=== PATIENT | female | born 1990 | race Caucasian/White ===

== ENCOUNTER 2022-03-21 05:59 | Outpatient (CLI) | payer OTHER ==
[~2022-03-21] VITALS: Ht 170.2 cm; Wt 90.5 kg
--- NOTE | 2022-03-21 06:10 | NUR ---
0610- Patient ambulatory to unit with spouse. Patient oriented to labor room 1 and assisted into a gown. Patient denies leaking of fluid, vaginal bleeding or contractions, and reports good movement. Patient reports a blood pressure of 160/110 this morning at home. Patient expresses desire to go home if her blood pressure is stable. Blood pressure assessmnet complete and 1+ pitting edema noted, but no other signs or symptoms of high BP assessed.
[2022-03-21] MEDS ORDERED: COLACE 100100 MG/CAP PO (06:30)
[2022-03-21] MEDS ORDERED: PRENATAL (06:30)
[2022-03-21] MEDS ORDERED: MIRALAX PA17 GM/Dose PO (06:31)
[2022-03-21] MEDS ORDERED: CLARITIN 1010 MG/TAB PO (06:32)
[2022-03-21] MEDS ORDERED: ZANTAC-360 (FAM10 MG PO (06:32)
[2022-03-21 07:00] VITALS: BP 128/87; PULSE 68; TEMP 98
[2022-03-21 07:43] LABS: COLLECTION METHOD CLEAN CATCH
[2022-03-21 07:48] LABS: BASO % 0.4 % (0.0-2.0); EOS # 0.1 K/mm3 (0.0-0.7); EOS % 0.7 % (0.0-4.0); GRAN # 6.2 K/mm3 (1.4-6.5); GRAN % 76.8 % (42.2-75.2); HEMATOCRIT 37.1 % (37.0-47.0); HEMOGLOBIN 13.1 g/dl (12.5-16.0); LYMPH % 12.9 % (20.0-51.0); MEAN CELL VOLUME 93 fl (80.0-100.0); MEAN CORPUSCULAR HEMOGLOBIN 33 pg (27-31); MEAN CORPUSCULAR HGB CONC 35 g/dl (33.0-37.0); MEAN PLATELET VOLUME 11.4 fl (7.4-10.4); MONO # 0.7 K/mm3 (0.1-0.6); MONO % 8.7 % (1.7-9.3); PLATELET COUNT 149 K/mm3 (130-400); RED BLOOD COUNT 4.01 M/mm3 (4.10-5.30); REDCELL DISTRIBUTION WIDTH-CV 12.4 % (11.5-14.5)
[2022-03-21 07:48] LABS: PH 6.5 (5.0-8.5); URINE APPEARANCE Clear (CLEAR/HAZY); URINE COLOR Yellow (YELLOW); URINE GLUCOSE Negative (NEGATIVE); URINE KETONE Negative (NEGATIVE); URINE PROTEIN(semi-quant) Negative (NEGATIVE); URINE UROBILINOGEN 0.2 E.U/dL (0.2-1.0)
[2022-03-21 07:49] LABS: URINE BLOOD Negative (NEGATIVE); URINE NITRATE Negative (NEGATIVE)
[2022-03-21 08:00] VITALS: BP 125/82; PULSE 58
[2022-03-21 08:03] LABS: ALBUMIN 2.8 gm/dL (3.5-5.0); BILIRUBIN,TOTAL 0.4 mg/dL (0.2-1.2); CREATININE, serum 0.66 mg/dL (0.57-1.11); TOTAL PROTEIN 6.1 gm/dL (6.2-8.1)
--- NOTE | 2022-03-21 08:10 | NUR ---
0810- ON UNIT EVALUATING PATIENT LABS AND BLOOD PRESSURE. 0812- IN PATIENTS ROOM DISCUSSING LAB RESULTS AND BLOOD PRESSURES. PATIENT EXPRESSES WANTING TO GO HOME LONG EVERYTHING IS LOOKING GOOD. EXPRESSES PAITENT CAN SAFETLY GO HOME SINCE BABY, VITALS AND LABS ARE STABLE. PATIENT REMOVED FROM EFM AND TOCO AND INFORMED OF NEED TO GET DISCHARGE PAPERWORK BEFORE GOING HOME.
[2022-03-21 08:15] VITALS: BP 122/83; PULSE 57
[2022-03-21 08:27] LABS: MUCOUS Present (NOT PRESENT); URINE BACTERIA Rare /hpf (NONE SEEN); URINE RBC 0-2 /hpf (0-2)
[2022-03-26] MEDS ORDERED: PROAIR HFA0.09 MG/AC IH (23:37)
[2022-03-28] MEDS ORDERED: IBU600 MG PO (08:18)
[2022-03-28] MEDS ORDERED: ROXICODONE 55 MG/TAB PO (12:09)
== END 2022-03-21 09:00 | disposition home or self-care (01) ==
LOC: LDRO 05:59
PROVIDERS: Obstetrics & Gynecology
DX: O16.3 Unspecified maternal hypertension, third trimester (principal); Z3A.40 40 weeks gestation of pregnancy

== ENCOUNTER → 2022-04-16 | Outpatient (CLI) | payer OTHER ==
[~2022-04-16] MED LIST: CLARITIN 1010 MG/TAB PO; COLACE 100100 MG/CAP PO; IBU600 MG PO; MIRALAX PA17 GM/Dose PO; PRENATAL; PROAIR HFA0.09 MG/AC IH; ROXICODONE 55 MG/TAB PO; ZANTAC-360 (FAM10 MG PO
--- NOTE | 2022-04-16 13:37 | NUR ---
Pt, Zora Philippe, presents to walk-in clinic with 20 day old baby boy, Sophie Lewis, and her spuse, Kiara Lewis. Pt c/o sore nipples. Sophie was born on [birth year] and weighed 8# 3.2oz (3720 gms). Pt reports Sophie weighed 8# 3oz on 04/04/22 at his doctor's appt. Today Sophie weighs 9# 4.2oz (4200 gms). Feedings are q 2-4 hours, and output is WNL. Pt reports soreness is near the nipple/areola junction, and a small scab on the left and a mauri larger on the right are noted. Pt has been using Vasques's Nipple Cream. Pt demonstrates how she has been bringing Roanin to the breast using the traditional cradle hold. Roanin essentially latches with his lips at the base of the nipple, pt is jumpy and LC removes Roanin from the breast. PT is advised to return to cross cradle, support the breast, compress the areola under his lips as she brings him the the breast. With this move the latch is pain free. Pt able to latch Roanin to the second breast using the technique advised without assistance. After bilaterally Sophie has a weight gain of POC: Continue BF ad garret using latch techniques reviewed today. F/U: As scheduled with physicians, walk-in clinic as desired. Questions invited and answered.
== END ==
LOC: LAC 13:11
DX: Z39.1 Encounter for care and examination of lactating mother (principal)

== ENCOUNTER 2022-06-19 20:19 | Emergency (ER) | payer OTHER ==
[~2022-06-19] VITALS: Ht 170.2 cm; Wt 72.7 kg
[2022-06-19 20:56] VITALS: TEMP 98.7
[2022-06-19 21:26] VITALS: BP 122/76; PULSE 61
== END 2022-06-19 21:26 | disposition home or self-care (01) ==
LOC: COL.ER 20:19
DX: N61.0 Mastitis without abscess (principal)